=== PATIENT | female | born 1950 | race Two or more races ===

== ENCOUNTER 2017-09-10 06:57 | Inpatient (IN) | payer MEDICARE, OTHER ==
[~2017-09-10] VITALS: Ht 160 cm; Wt 86.6 kg
--- NOTE | 2017-09-10 06:57 | NUR ---
RECEIVED PATIENT TO ED BED 12, A/OX4, PT WAS BBRA FROM HOME COMPLAINING OF CP X3 HOURS RADIATING TO EPIGASTRIC AREA, 2 NTG SPRAYS AND ASA 162MG PO. SKIN IS WARM AND NON DIAPHORETIC. GOWNED AND PLACED ON CONT CARDIAC AND POX MONITORING. ALL NEEDS ARE ATTENEDED, KEPT COMFORTABLE. PENDING ER MD EVALUATION
[2017-09-10 07:32] LABS: BASOPHILS % (AUTO) 0.3 % (0.0-2.0); EOSINOPHILS % (AUTO) 1.7 % (0.0-6.0); HEMATOCRIT 42 % (33-45); HEMOGLOBIN 14.2 g/dL (11.5-14.8); LYMPHOCYTES # (AUTO) 2.5 /CMM (0.8-4.8); LYMPHOCYTES % (AUTO) 22.9 % (20.0-44.0); MEAN CORPUSCULAR HGB CONC 34 g/dl (31.0-36.0); MEAN CORPUSCULAR VOLUME 89 fL (82-100); MONOCYTES # (AUTO) 0.6 /CMM (0.1-1.30); MONOCYTES % (AUTO) 5.6 % (2.0-12.0); NEUTROPHILS # (AUTO) 7.5 /CMM (1.8-8.9); NEUTROPHILS % (AUTO) 69.5 % (43.0-81.0); PLATELET COUNT (AUTO) 328 /CMM (150-450); RDW COEFFICIENT OF VARIATION 12.7 (11.5-15.0); RED BLOOD CELL COUNT(AUTO) 4.75 MIL/uL (4.0-5.2); WHITE BLOOD COUNT (AUTO) 10.8 K/uL (4.3-11.0)
[2017-09-10 07:48] LABS: ALANINE AMINOTRANSFERASE 23 U/L (12-78); ALBUMIN 3.5 g/dL (3.4-5.0); ALKALINE PHOSPHATASE 109 U/L (46-116); ASPARTATE AMINOTRANSFERASE 13 U/L (15-37); BILIRUBIN,DIRECT 0.1 mg/dL (0.0-0.2); BILIRUBIN,TOTAL 0.3 mg/dL (0.2-1.0); CALCIUM, SERUM 9.7 mg/dL (8.5-10.1); CARBON DIOXIDE 25 mmol/L (21-32); CHLORIDE 100 mmol/L (98-107); GLUCOSE 199 mg/dL (74-106); LIPASE 210 U/L (73-393); POTASSIUM 4.1 mmol/L (3.5-5.1); SODIUM SERUM 137 mmol/L (136-145); UREA NITROGEN, BLOOD 13 mg/dL (7-18)
[2017-09-10 07:50] LABS: TROPONIN I < 0.017 ng/mL (0.00-0.056)
[2017-09-10 07:53] LABS: CREATININE 0.5 mg/dL (0.6-1.3)
[2017-09-10] MEDS ORDERED: ONDANSETRON HCL/PF 4 MG/2 ML VIAL ONE (08:02)
[2017-09-10] MEDS ORDERED: MORPHINE SULFATE INJ 4 MG/ML DISP.SYRIN ONE ×2 (08:02→10:01)
[2017-09-10] MEDS ORDERED: ONDANSETRON HCL/PF 4 MG/2 ML VIAL IVP ONE (08:30)
[2017-09-10] MEDS ORDERED: MORPHINE SULFATE INJ 2 MG/ML DISP.SYRIN IV ONE ×2 (08:30→11:30)
--- NOTE | 2017-09-10 09:08 | NUR ---
PANEL ENTRY SPECIALIST PAGED
--- NOTE | 2017-09-10 09:24 | NUR ---
XRAY AT BEDSIDE
[2017-09-10] MEDS ORDERED: DOCU100C36 PO (09:56)
[2017-09-10] MEDS ORDERED: METF-442 PO (09:56)
[2017-09-10] MEDS ORDERED: GLIM4TAB2 PO (09:56)
[2017-09-10] MEDS ORDERED: ASPI-1152 PO (09:56)
[2017-09-10] MEDS ORDERED: BENA10TA9 PO (09:56)
[2017-09-10] MEDS ORDERED: FAMO20TA8 PO (09:56)
[2017-09-10] MEDS ORDERED: NITROGLYCERIN 0.4 MG/TAB BOTTLE SL PRN (10:00)
[2017-09-10] MEDS ORDERED: MAG HYDROX/AL HYDROX/SIMETH 30 ML UDC PO PRN (10:00)
[2017-09-10] MEDS ORDERED: ZOLPIDEM TARTRATE 5 MG TABLET PO PRN (10:00)
[2017-09-10] MEDS ORDERED: Z GUARD REMEDY 2 OZ OINT TP PRN (10:00)
[2017-09-10] MEDS ORDERED: ONDANSETRON HCL/PF 4 MG/2 ML VIAL IVP PRN (10:00)
--- NOTE | 2017-09-10 10:07 | NUR ---
VERBAL ORDER PER DR GRANADOS MORPHINE 2MG FOR CHEST PAIN. GIVEN ORDERED BY ER
--- NOTE | 2017-09-10 10:27 | NUR ---
REPORT GIVEN TO VIOLET GREEN FOR JAMI
--- NOTE | 2017-09-10 10:58 | NUR ---
TRANSFERRED TO FLOOR VIA ACLS PROTOCOL
[2017-09-10 11:00] VITALS: BP 151/76
--- NOTE | 2017-09-10 11:00 | NUR ---
RESTAURANT AREA DIRECTOR OPENING NOTES PT RECEIVED AWAKE A & O X 4, NO C/O PAIN, NO SOB. NO FEVER @ THIS TIME. IV ACCESS TO LAC PATENT AND INTACT NO REDNESS OR INFILTRATION NOTED,BRP WITH ASSIST. ABLE TO MAKE NEEDS KNOWN. SAFETY MEASURES IN PLACE.AYDEE QUINTEROS AWARE PT IS ON UNIT WILL CARRY OUT ADMITTING ORDERS BED IN LOW LOCKED POSITION. CALL LIGHT WITHIN REACH WILL CONTINUE TO MONITOR, PER PT MISSING PHONE NO PHONE IN BELONGINGS LIST FROM ER PER ER WILL SEARCH
[2017-09-10] MEDS ORDERED: DEXTROSE 50%-WATER 50 ML DISP.SYRIN IV PRN (12:00)
[2017-09-10] MEDS: PANTOPRAZOLE 40 MG TABLET.DR PO SCH (12:06)
[2017-09-10] MEDS: BLOOD SUGAR DIAGNOSTIC 1 EACH STRIP IN SCH ×3 (12:06→21:12)
[2017-09-10] MEDS: ENOXAPARIN SODIUM 40 MG/0.4 ML DISP.SYRIN SQ SCH (12:18)
[2017-09-10] MEDS: INSULIN REGULAR, HUMAN 100 UNIT/ML 3 ML VIAL SQ PRN ×3 (12:50→21:23)
[2017-09-10] MEDS: MORPHINE SULFATE INJ 4 MG/ML DISP.SYRIN IV PRN ×3 (12:51→22:27)
[2017-09-10] MEDS: LORAZEPAM INJ 2 MG/ML VIAL IV PRN ×2 (13:37→21:13)
[2017-09-10 14:03] LABS: THYROID STIMULATING HORMONE 1.254 uIU/mL (0.358-3.74)
[2017-09-10 16:00] VITALS: BP 145/73
[2017-09-10] MEDS: METFORMIN 500 MG TABLET PO SCH (17:00)
--- NOTE | 2017-09-10 19:15 | NUR ---
HOSPITAL STAFF PHARMACIST OPENING NOTE RECEIVED PATIENT SITTING ON THE BED, ALERT ORIENTED X3, ON ROOM AIR TOLERATING WELL, IN NO APPARENT DISTRESS OR DISCOMFORT AT THIS TIME. RESPIRATIONS EVEN AND UNLABORED, NO COMPLAINS OF PAIN OR SOB. ABLE TO MAKE NEEDS KNOWN. IVC ON THE RIGHT AC 18G, PATENT AND INTACT, NO REDNESS OR INFILTRATION NOTED. ON TELE MONITORING WITH SINUS RHYTHM AND HEART RATE OF 81. PATIENT WITH BRP WITH ASSISTANCE. FAMILY AT BEDSIDE. SAFETY MEASURES IN PLACE, BED IN LOW LOCKED POSITION, CALL LIGHT WITHIN EASY REACH, WILL CONTINUE TO MONITOR.
--- NOTE | 2017-09-10 19:43 | NUR ---
RN JARVISS PT AWAKE A & O X 4, NO C/O PAIN, NO SOB. NO FEVER @ THIS TIME. IV ACCESS TO LAC PATENT AND INTACT NO REDNESS OR INFILTRATION NOTED,BRP WITH ASSIST. ABLE TO MAKE NEEDS KNOWN. SAFETY MEASURES IN PLACE.AYDEE QUINTEROS AWARE PT IS ON UNIT WILL CARRY OUT ADMITTING ORDERS BED IN LOW LOCKED POSITION. CALL LIGHT WITHIN REACH, ENDORSED TO NEXT SHIFT FOR CONTINUITY OF CARE JUST ARRIVED FROM HIDA SCAN BS CHECKED PT EXPLAINED ABOUT HIDA SCAN PROCEDURE
[2017-09-10 20:00] VITALS: BP_SYST 138; BP_DIAS 65; BP_DIAS 66
[2017-09-10] MEDS: ATORVASTATIN 10 MG TABLET PO SCH (21:13)
--- NOTE | 2017-09-10 21:30 | NUR ---
PRN ATIVAN 0.5MG WAS ADMINISTERED BEFORE PATIENT WAS TAKEN TO HIDA SCAN DUE TO PATIENT STATING SHE GET CLAUSTROPHOBIC AND ANXIOUS DURING SUCH EXAMS. WILL REASSESS UPON RETURN .
[2017-09-11 04:00] VITALS: BP 131/62
[2017-09-11] MEDS: MAGNESIUM HYDROXIDE 30 ML UDC PO PRN (05:27)
[2017-09-11] MEDS: ACETAMINOPHEN 325 MG TABLET PO PRN (06:00)
--- NOTE | 2017-09-11 06:29 | NUR ---
INDUSTRIAL SAFETY AND HEALTH SPECIALIST CLOSING NOTE PATIENT IN THE BED, SLEEPING, EASILY AROUSED WITH VERBAL STIMULI, ORIENTED X3, ON 2L O2 VIA NC, TOLERATING WELL, IN NO APPARENT DISTRESS OR DISCOMFORT AT THIS TIME. RESPIRATIONS EVEN AND UNLABORED, NO COMPLAINS OF PAIN OR SOB. ABLE TO MAKE NEEDS KNOWN. IVC ON THE RIGHT AC 18G, PATENT AND INTACT, NO REDNESS OR INFILTRATION NOTED. ON TELE MONITORING WITH SINUS RHYTHM AND HEART RATE OF 93. PATIENT WITH BRP WITH ASSISTANCE. FAMILY AT BEDSIDE. SAFETY MEASURES IN PLACE, BED IN LOW LOCKED POSITION, CALL LIGHT WITHIN EASY REACH,, WILL ENDORSE TO AM NURSE FOR JAMI.
[2017-09-11] MEDS: BLOOD SUGAR DIAGNOSTIC 1 EACH STRIP IN SCH ×4 (06:51→21:27)
[2017-09-11 06:52] LABS: EOSINOPHILS % (AUTO) 0.3 % (0.0-6.0); HEMATOCRIT 42 % (33-45); HEMOGLOBIN 14.6 g/dL (11.5-14.8); LYMPHOCYTES % (AUTO) 8.2 % (20.0-44.0); MEAN CORPUSCULAR HGB CONC 35 g/dl (31.0-36.0); MEAN CORPUSCULAR VOLUME 89 fL (82-100); MONOCYTES # (AUTO) 1.4 /CMM (0.1-1.30); MONOCYTES % (AUTO) 5.6 % (2.0-12.0); NEUTROPHILS # (AUTO) 20.7 /CMM (1.8-8.9); NEUTROPHILS % (AUTO) 85.9 % (43.0-81.0); PLATELET COUNT (AUTO) 349 /CMM (150-450); RDW COEFFICIENT OF VARIATION 12.6 (11.5-15.0); WHITE BLOOD COUNT (AUTO) 24.1 K/uL (4.3-11.0)
[2017-09-11] MEDS: INSULIN REGULAR, HUMAN 100 UNIT/ML 3 ML VIAL SQ PRN ×4 (06:53→21:39)
[2017-09-11 07:13] LABS: ALBUMIN 3.4 g/dL (3.4-5.0); BILIRUBIN,TOTAL 0.6 mg/dL (0.2-1.0); CALCIUM, SERUM 9.2 mg/dL (8.5-10.1); CREATININE 0.5 mg/dL (0.6-1.3); MAGNESIUM 2.2 mg/dL (1.8-2.4); PHOSPHORUS 3.4 mg/dL (2.5-4.9); POTASSIUM 4.1 mmol/L (3.5-5.1)
[2017-09-11 08:00] VITALS: BP 142/83
--- NOTE | 2017-09-11 08:00 | NUR ---
ms rn received on bed,awake,alert,oriented x3,not in any form of distress, respirations even and unlabored,no sob noted, lungs are diminish,abdomen soft,positive bowel sounds,denies pain at this time, will monitor patient's condition.
[2017-09-11] MEDS: METFORMIN 500 MG TABLET PO SCH ×2 (08:40→17:25)
[2017-09-11] MEDS: ASPIRIN EC 325 MG TABLET.DR PO SCH (08:40)
[2017-09-11] MEDS: PANTOPRAZOLE 40 MG TABLET.DR PO SCH (08:41)
[2017-09-11] MEDS: BENAZEPRIL HCL 10 MG TABLET PO SCH (08:41)
[2017-09-11] MEDS: HYDROCODONE/APAP 5/325MG 1 EACH TABLET PO PRN ×2 (08:42→17:25)
[2017-09-11] MEDS: ENOXAPARIN SODIUM 40 MG/0.4 ML DISP.SYRIN SQ SCH (08:42)
--- NOTE | 2017-09-11 08:45 | NUR ---
ms chauhan breakfast served,due meds given,tolerated well.
[2017-09-11 09:05] LABS: BAND % (MANUAL) 1 % (0.0-5.0); LYMPHOCYTES % (MANUAL) 10 % (16-48); MONOCYTES % (MANUAL) 8 % (0-11.0); NEUTROPHILS % (MANUAL) 81 (42-76)
--- NOTE | 2017-09-11 15:00 | NUR ---
ms rn was seen by audi mckeon, hida scan positive,refferred to dr. vergara.
[2017-09-11 15:57] VITALS: BP 142/67
--- NOTE | 2017-09-11 16:00 | NUR ---
ms rn was seen by robyn reyes, patient will have surgery in am, npo post midnight, patient aware.
[2017-09-11] MEDS ORDERED: PIPERACILLIN /TAZOBACTAM 3.375 G in IV D5W 100 ML IV SCH (17:00)
[2017-09-11] MEDS: PIPERACILLIN /TAZOBACTAM 3.375 G in IV D5W 50 ML IV SCH ×2 (18:37→23:56)
--- NOTE | 2017-09-11 18:43 | NUR ---
ms chauhan vbs - 250 4 units of regular insulin given.
[2017-09-11 19:38] LABS: INR 0.95 (0.87-1.13)
--- NOTE | 2017-09-11 19:57 | NUR ---
MS/RN OPENING NOTES PATIENT IN BED, ALERT, ORIENTED, ABLE TO VERBALIZE NEEDS, GOOD EYE CONTACT. RESPIRATIONS EVEN AND UNLABORED, CALL LIGHTS WITHIN REACH, RECEIVED ENDORSEMENT FROM AM RN FOR JAMI WITH PLAN /MD ORDER FOR SCHEDULED PROCEDURE, PATIENT AWARE, NPO AFTER MIDNIGHT, WILL FOLLOW UP CONSENT AND CHECKLIST, CBED IN LOCK POSITION,WILL MONITOR.
[2017-09-11 20:00] VITALS: BP_SYST 110; BP_SYST 124; BP_DIAS 65
[2017-09-11] MEDS: ATORVASTATIN 10 MG TABLET PO SCH (21:24)
[2017-09-12] MEDS: PIPERACILLIN /TAZOBACTAM 3.375 G in IV D5W 50 ML IV SCH ×4 (05:09→23:59)
--- NOTE | 2017-09-12 06:28 | NUR ---
304-2 MS/RN NOTES PATIENT IN BED, ABLE TO SLEEP DURING THE NIGHT, ON OXYGEN VIA NC AT 2L, SKIN WARM TO TOUCH, WILL ENDORSE TO AM RN FOR JAMI. CALL LIGHTS WITHIN REACH, BED IN LOCK POSITION.
[2017-09-12 06:42] LABS: APPEARANCE,URINE CLOUDY (CLEAR); BILIRUBIN,URINE NEGATIVE (NEGATIVE); BLOOD, URINE TRACE-INTA Ery/uL (NEGATIVE); COLOR,URINE YELLOW (YELLOW); KETONES,URINE NEGATIVE (NEGATIVE); LEUKOCYTE ESTERASE ,URINE NEGATIVE (NEGATIVE); NITRITE, URINE NEGATIVE (NEGATIVE); PROTEIN,URINE NEGATIVE (NEGATIVE); UGLUCOSE 3+ mg/dL (NEGATIVE); UROBILINOGEN,URINE 0.2 EU/dL (0.2)
[2017-09-12 06:52] LABS: BACTERIA,URINE Few /HPF (None Seen); MUCUS,URINE Few /LPF (None Seen); URINE AMORPHOUS URATE Many /HPF (None Seen); WBC,URINE 0-2 /HPF (0-3)
--- NOTE | 2017-09-12 07:15 | NUR ---
MS/RN OPENING NOTE PATIENT IS RECEIVED IN BED AWAKE. ALERT AND ORIENTED X4. DENIES SOB. RESPIRATION REGULAR AND UNLABORED. DENIES PAIN. PATIENT NPO SINCE MIDNIGHT. RAC G 18 PATENT AND SALINE LOCKED. BED LOW AND LOCKED. SIDE RAILS UP X2. CALL LIGHT WITHIN REACH. WILL CONTINUE TO MONITOR.
[2017-09-12 08:00] VITALS: BP 122/68
[2017-09-12] MEDS: MAGNESIUM HYDROXIDE 30 ML UDC PO PRN (08:12)
[2017-09-12] MEDS: BENAZEPRIL HCL 10 MG TABLET PO SCH (08:13)
[2017-09-12] MEDS: ASPIRIN EC 325 MG TABLET.DR PO SCH (08:13)
[2017-09-12] MEDS: PANTOPRAZOLE 40 MG TABLET.DR PO SCH (08:14)
[2017-09-12] MEDS: BLOOD SUGAR DIAGNOSTIC 1 EACH STRIP IN SCH ×4 (08:14→22:16)
--- NOTE | 2017-09-12 08:43 | NUR ---
MS/RN NOTE BLOOD SUGAR 193. NO INSULIN GIVEN DUE TO PATIENT REMAINING NPO.
[2017-09-12] MEDS: METFORMIN 500 MG TABLET PO SCH ×2 (09:00→17:00)
[2017-09-12] MEDS ORDERED: MAGNESIUM HYDROXIDE 30 ML UDC PO PRN (09:00)
[2017-09-12] MEDS ORDERED: NA PHOS,M-B/NA PHOS,DI-BA 1 EA ENEMA RC PRN (09:00)
--- NOTE | 2017-09-12 10:00 | NUR ---
MS/RN NOTE 0900 GLUCOPHAGE HELD DUE TO PATIENT REMAINING NPO FOR DIAGNOSIS.
[2017-09-12] MEDS ORDERED: FENTANYL PF 100MCG/2ML AMPUL ONE ×2 (15:57→15:58)
[2017-09-12] MEDS ORDERED: SUCCINYLCHOLINE CHLORIDE 20 MG/ML VIAL ONE (15:58)
[2017-09-12] MEDS ORDERED: ROCURONIUM BROMIDE 50 MG/5 ML ONE ×2 (15:59→17:32)
--- NOTE | 2017-09-12 16:00 | NUR ---
MS/RN NOTE PATIENT ALERT AND ORIENTED X4. RESPIRATION REGULAR AND UNLABORED. DENIES SOB. DENIES PAIN. PATIENT IN NO APPARENT DISTRESS. PATIENT IS PICKED UP ON A GURNEY AND TAKEN TO OR FOR PROCEDURE.
[2017-09-12] MEDS ORDERED: LIDOCAINE 1%-EPI 1:100,000 20 ML VIAL ONE (16:30)
[2017-09-12] MEDS ORDERED: BUPIVACAINE 0.25% 75 MG/30 ML VIAL ONE (16:30)
[2017-09-12] MEDS ORDERED: IOHEXOL 240MG/ML 50 ML IV ONE (17:22)
--- NOTE | 2017-09-12 18:38 | NUR ---
MS/RN NOTE 1700 GLUCOPHAGE NOT GIVEN AND 1730 BLOOD SUGAR NOT CHECKED DUE TO PATIENT STILL IN OR.
--- NOTE | 2017-09-12 18:41 | NUR ---
MS/RN NOTE PATIENT IS STILL IN OR. ENDORSEMENTS WILL BE GIVEN TO THE UPCOMING SHIFT.
--- NOTE | 2017-09-12 18:45 | NUR ---
MS/RN NOTE 1800 ZOSYN NOT ADMINISTERED DUE TO PATIENT STILL IN OR.
[2017-09-12] MEDS ORDERED: HYDROMORPHONE INJ 2 MG/ML DISP.SYRIN ONE (18:55)
--- NOTE | 2017-09-12 19:25 | NUR ---
TELE/THERAPIST OCCUPATIONAL; PT CAME BACK FOR OR VIA GURLILIBETH ACCOMPANIED BY SHIP FITTER, BANDAR. PT IS AWAKE AND VERBALLY RESPONSIVE. PT WITH 4 INCISIONAL DRESSINGS CLEAN AND INTACT. HAS CHAVEZ RT SIDE OF THE ABDOMEN WITH RED DRAINAGE COLOR. HL ON LAC INTACT. PLACED ON TELEMETRY ORDERED. DVT PUMP APPLIED TO BOTH LOWER LEGS. RT INFORMED FOR THE INCENTIVE SPIROMETRY TO THE PT. HOB ELEVATED ORDERED. ICE PACK APPLIED TO THE ABDOMEN ORDERED. VITAL SIGNS CHECKED BY THE [place] CONSULTANT . BED ON LOWER POSITION AND LOCKED FOR SAFETY. SIDE RAILS X 3 ARE UP FOR SAFETY.
--- NOTE | 2017-09-12 19:30 | NUR ---
TELE/DATA WAREHOUSING MANAGER; VITAL SIGNS Q 15 MINS; 123/47 P 62, R 18 T 97.7 O2 SAT ON O2 2L NC 97 % 123 / 60 P 96 112 / 58 , P 95 117 / 99 , P 100
[2017-09-12 20:00] VITALS: BP 116/57
--- NOTE | 2017-09-12 20:06 | NUR ---
RECEIVED ORDER FOR INCENTIVE SPIROMETER. PT CAME FROM SURGERY. EXPLAINED AND EDUCATED PT AND FAMILY MEMBERS IN THE ROOM HOW TO USE THE INCENTIVE SPIROMETER.
--- NOTE | 2017-09-12 20:30 | NUR ---
TELE/LOTUS NOTES DEVELOPER; VITAL SIGNS Q 30 MINS; 104/56 P 94 R 18 T 97.6 O2 SA ON 2L NC 97 %; 92/48 , P65, R 18 T 97.4 O2 SAT 92 % on o2 2lnc; 106/ 57 P 73; 117 / 64 P 81 ; 112 / 63 P 79.
--- NOTE | 2017-09-12 21:05 | NUR ---
TELE/RUSSIAN LANGUAGE INSTRUCTOR; PLACED A CALL TO DR. PASTORA BASURTO FOR POST ORDER FOR THE PT BE ON HOME HEALTH CAREGIVER, DIET , IF PRE OP. ORDERS TO RESUME AND IV FLUIDS. DR. PASTORA BASURTO WITH ORDERS TO PLACE PT ON HOME HEALTH CAREGIVER , START CLEAR LIQUID TONIGHT, HE SAID I RESUMED ALREADY THE PRE OP ORDERS AND FOR THIV FLUIDS TO CALL THE PRIMARY MD.
--- NOTE | 2017-09-12 22:00 | NUR ---
TELE/BILINGUAL ELEMENTARY SCHOOL TEACHER; BS 259 COVERED WITH REGULAR INSULIN 6 UNITS SQ.
[2017-09-12] MEDS: ATORVASTATIN 10 MG TABLET PO SCH (22:04)
[2017-09-12] MEDS: INSULIN REGULAR, HUMAN 100 UNIT/ML 3 ML VIAL SQ PRN (22:29)
[2017-09-12] MEDS: INSULIN GLARGINE, 100 UNIT/ML CARTRIDGE SQ SCH (22:33)
--- NOTE | 2017-09-12 22:40 | NUR ---
TELE/MOTION PICTURE EQUIPMENT MACHINIST; I PLACED A CALL TO DR. BANDAR DIXON AND I SPOKE TO HIM THIS POST OP PT IF SHE NEEDS IV FLUID AND HE SAID IF PT ON DIET ORDER AND I SAID ON CLEAR LIQUID AND DR. BANDAR DIXON SAID NO IV FLUIDS ORDER.
[2017-09-13] VITALS: BP 107/69
[2017-09-13 04:00] VITALS: BP 95/66
[2017-09-13] MEDS: PIPERACILLIN /TAZOBACTAM 3.375 G in IV D5W 50 ML IV SCH ×3 (05:05→17:23)
--- NOTE | 2017-09-13 06:00 | NUR ---
TELE/BEACH PATROL LIEUTENANT; BS 223 COVERED WITH REGULAR INSULIN 4 UNITS SQ.
[2017-09-13] MEDS: BLOOD SUGAR DIAGNOSTIC 1 EACH STRIP IN SCH ×4 (06:06→21:50)
[2017-09-13] MEDS: INSULIN REGULAR, HUMAN 100 UNIT/ML 3 ML VIAL SQ PRN ×3 (06:32→17:18)
[2017-09-13 06:39] LABS: HEMATOCRIT 38 % (33-45); LYMPHOCYTES # (AUTO) 1.4 /CMM (0.8-4.8); MEAN CORPUSCULAR HGB CONC 34 g/dl (31.0-36.0); MEAN CORPUSCULAR VOLUME 90 fL (82-100); MONOCYTES # (AUTO) 0.9 /CMM (0.1-1.30); MONOCYTES % (AUTO) 4.9 % (2.0-12.0); NEUTROPHILS # (AUTO) 15.4 /CMM (1.8-8.9); NEUTROPHILS % (AUTO) 87.1 % (43.0-81.0); PLATELET COUNT (AUTO) 326 /CMM (150-450); RDW COEFFICIENT OF VARIATION 12.5 (11.5-15.0); RED BLOOD CELL COUNT(AUTO) 4.28 MIL/uL (4.0-5.2); WHITE BLOOD COUNT (AUTO) 17.7 K/uL (4.3-11.0)
--- NOTE | 2017-09-13 06:43 | NUR ---
TELE/INFORMATION CLERK [employer]; PT ON SR 87. SLEPT ON AND OFF. VOIDING. DRESSING INTACT. CHAVEZ WITH 75 ML RED COLOR DRAINAGE. ICE PACK TO ABDOMEN APPLIED. CHAVEZ MILK Q8 HOURS ORDERED. WILL CONTINUE TO MONITOR. CALL LIGHT WITHIN REACH. WILL ENDORSE TO THE DAY SHIFT NURSE.
[2017-09-13 06:48] LABS: ALBUMIN 2.8 g/dL (3.4-5.0); BILIRUBIN,TOTAL 0.5 mg/dL (0.2-1.0); CALCIUM, SERUM 8.9 mg/dL (8.5-10.1); CREATININE 0.5 mg/dL (0.6-1.3); POTASSIUM 4.2 mmol/L (3.5-5.1); TOTAL PROTEIN, SERUM 7.1 g/dL (6.4-8.2)
--- NOTE | 2017-09-13 07:20 | NUR ---
TELE/RN OPENING NOTE PATIENT IS RECEIVED IN BED. AWAKE, ALERT AND ORIENTED X4. DENIES SOB. RESPIRATION REGULAR AND UNLABORED. DENIES PAIN. PATIENT ON TELE MONITOR AND REGISTERING SR. ABDOMINAL INCISION DRESSINGS INTACT AND NO BLEEDING, NO DISCHARGE NOTED. CHAVEZ DRAIN IN PLACE. BED LOW AND LOCKED. SIDE RAILS UP X2. CALL LIGHT WITHIN REACH. WILL CONTINUE TO MONITOR.
[2017-09-13 08:00] VITALS: BP 111/70
[2017-09-13] MEDS: PANTOPRAZOLE 40 MG TABLET.DR PO SCH (08:18)
[2017-09-13] MEDS: ASPIRIN EC 325 MG TABLET.DR PO SCH (08:18)
[2017-09-13] MEDS: BENAZEPRIL HCL 10 MG TABLET PO SCH (08:19)
[2017-09-13] MEDS: METFORMIN 500 MG TABLET PO SCH ×2 (08:19→16:25)
[2017-09-13] MEDS: HYDROCODONE/APAP 5/325MG 1 EACH TABLET PO PRN (13:15)
[2017-09-13 15:58] VITALS: BP 107/61
[2017-09-13 16:00] VITALS: BP_SYST 107; BP_SYST 111; BP_DIAS 61; BP_DIAS 70
--- NOTE | 2017-09-13 18:19 | NUR ---
MS/RN CLOSING NOTE PATIENT ALERT AND ORIENTED X4. RESPIRATION REGULAR AND UNLABORED. DENIES SOB. ON O2 VIA NC AND O2 SATURATION AT 96%. ABDOMINAL INCISIONS WITH DRESSING AND NO BLEEDING/ NO DISCHARGE NOTED. RIGHT HAND G 24 PATENT AND SALINE LOCKED. PATIENT AMBULATES WITH STAND BY ASSIST. BED LOW AND LOCKED. SIDE RAILS UP X2. CALL LIGHT WITHIN REACH. WILL ENDORSE TO WATCH AND CLOCK REPAIR CLERK.
[2017-09-13] MEDS: ACETAMINOPHEN 325 MG TABLET PO PRN (19:54)
--- NOTE | 2017-09-13 19:56 | NUR ---
MS/RN OPENING NOTES PATIENT IN BED, RESTING COMFORTABLY IN BED, ALERT, ORIENTED, ON OXYGEN VIA NC AT 2L, WEAK BUT ABLE TO VERBALIZE NEEDS, PAIN OF 3/10 REPORTED, TYLENO 650MG PO GIVEN, FAMILY AT BEDSIDE. CALL LIGHTS WITHIN REACH, BED IN LOCK POSITION. DRESSING ON ABDOMEN DRY AND INTACT. CHAVEZ DRAIN INTACT WITH SCANTY DRAIN. KEEP SKIN INTACT AND DRY.
[2017-09-13 20:00] VITALS: BP 111/60
--- NOTE | 2017-09-13 20:40 | NUR ---
MS RN NOTE RECEIVED PATIENT FROM PETER GUAMAN FOR JAMI. WILL CONTINUE TO MONITOR PATIENT.
[2017-09-13] MEDS: ATORVASTATIN 10 MG TABLET PO SCH (21:48)
[2017-09-13] MEDS: INSULIN GLARGINE, 100 UNIT/ML CARTRIDGE SQ SCH (21:52)
[2017-09-13] MEDS: LORAZEPAM INJ 2 MG/ML VIAL IV PRN (22:22)
--- NOTE | 2017-09-13 22:25 | NUR ---
MS RN NOTE PATIENT STATED THAT SHE FEELS ANXIOUS, WANTS TO TAKE MEDICATION. ATIVAN 0.5MG IV GIVEN.
[2017-09-14] MEDS: PIPERACILLIN /TAZOBACTAM 3.375 G in IV D5W 50 ML IV SCH ×6 (05:34→23:00)
[2017-09-14] MEDS: BLOOD SUGAR DIAGNOSTIC 1 EACH STRIP IN SCH ×4 (05:37→21:36)
[2017-09-14] MEDS: INSULIN REGULAR, HUMAN 100 UNIT/ML 3 ML VIAL SQ PRN ×4 (05:39→21:45)
--- NOTE | 2017-09-14 06:04 | NUR ---
ms rn note patient transferred to ms 2 208 without incidence. bedside report given to yasemin chauhan.
--- NOTE | 2017-09-14 07:03 | NUR ---
MS/RN NOTES RECEIVED PATIETN, ALERT, ORIENTED, RESTING COMFORTABLY IN BED, ATTEND TO NEEDS, SKIN WARM TO TOUCH, WILL ENDORSE TO AM RN FOR JAMI.
--- NOTE | 2017-09-14 07:30 | NUR ---
RN MS NOTES PT IN BED, AWAKE, ALERT AND ORIENTED, WITH COMPLAINT OF MILD PAIN 3/10 IN ABDOMEN AREA, NOT IN DISTRESS, CALL LIGHT WITHIN REACH, KEPT COMFORTABLE, NEEDS ATTENDED.
[2017-09-14 08:00] VITALS: BP 109/58
[2017-09-14] MEDS: BENAZEPRIL HCL 10 MG TABLET PO SCH (09:00)
[2017-09-14] MEDS: METFORMIN 500 MG TABLET PO SCH ×2 (09:08→18:16)
[2017-09-14] MEDS: PANTOPRAZOLE 40 MG TABLET.DR PO SCH (09:09)
[2017-09-14] MEDS: DOCUSATE SODIUM 100 MG CAPSULE PO PRN (09:13)
--- NOTE | 2017-09-14 11:55 | NUR ---
RN MS NOTES PT IN BED, AWAKE, ALERT AND ORIENTED, DENIES PAIN, NOT IN DISTRESS, CALL LIGHT WITHIN EACH, ASSISTED TO BATHROOM NEEDED, ABLE TO WALK WITH ASSISTANCE, NEEDS ATTENDED.
[2017-09-14] MEDS: ASPIRIN EC 325 MG TABLET.DR PO SCH (12:12)
[2017-09-14 16:00] VITALS: BP 144/76
[2017-09-14 17:50] LABS: BASOPHILS % (AUTO) 0.3 % (0.0-2.0); EOSINOPHILS % (AUTO) 1.4 % (0.0-6.0); HEMATOCRIT 39 % (33-45); HEMOGLOBIN 13.2 g/dL (11.5-14.8); LYMPHOCYTES # (AUTO) 2.6 /CMM (0.8-4.8); MEAN CORPUSCULAR HGB CONC 34 g/dl (31.0-36.0); MEAN CORPUSCULAR VOLUME 88 fL (82-100); MONOCYTES # (AUTO) 0.8 /CMM (0.1-1.30); MONOCYTES % (AUTO) 6.5 % (2.0-12.0); NEUTROPHILS # (AUTO) 8.7 /CMM (1.8-8.9); NEUTROPHILS % (AUTO) 70.8 % (43.0-81.0); PLATELET COUNT (AUTO) 362 /CMM (150-450); RDW COEFFICIENT OF VARIATION 12.9 (11.5-15.0); RED BLOOD CELL COUNT(AUTO) 4.45 MIL/uL (4.0-5.2); WHITE BLOOD COUNT (AUTO) 12.2 K/uL (4.3-11.0)
[2017-09-14 18:09] LABS: CALCIUM, SERUM 9.3 mg/dL (8.5-10.1); CREATININE 0.6 mg/dL (0.6-1.3); POTASSIUM 3.6 mmol/L (3.5-5.1)
--- NOTE | 2017-09-14 19:00 | NUR ---
RN MS NOTES PT IN BED, AWAKE, ALERT AND ORIENTED, NO COMPLAINT OF PAIN, BREATHING PATTERN NORMAL AND NOT LABORED, ABLE TO AMBULATE WITH ASSISTANCE, CHAVEZ DRAIN IN PLACE, WITH MINIMAL DRAIN NOTED, PM MEDS GIVEN, TOLERATING CURRENT DIET WELL, BLOOD SUGAR CHECKED, NO S/S OF HYPO/HYPERGLYCEMIA NOTED, CALL LIGHT WITHIN REACH, ALL NEEDS ATTENDED.
--- NOTE | 2017-09-14 19:23 | NUR ---
MS RN NOTES RECEIVE PT IN BED A/O X 4, NO S/S OF DISTRESS, SAFETY MEASURES IN PLACE, CALL LIGHT WITHIN REACH, WILL CONTINUE TO MONITOR
[2017-09-14 20:00] VITALS: BP 100/55
[2017-09-14] MEDS: ATORVASTATIN 10 MG TABLET PO SCH (21:36)
[2017-09-14] MEDS: INSULIN GLARGINE, 100 UNIT/ML CARTRIDGE SQ SCH (21:44)
[2017-09-14] MEDS: MAGNESIUM HYDROXIDE 30 ML UDC PO PRN (21:46)
[2017-09-15] MEDS: PIPERACILLIN /TAZOBACTAM 3.375 G in IV D5W 50 ML IV SCH ×4 (05:01→23:26)
[2017-09-15] MEDS: BLOOD SUGAR DIAGNOSTIC 1 EACH STRIP IN SCH ×4 (05:57→21:59)
[2017-09-15] MEDS: INSULIN REGULAR, HUMAN 100 UNIT/ML 3 ML VIAL SQ PRN ×4 (06:03→21:59)
[2017-09-15 06:36] LABS: CALCIUM, SERUM 8.9 mg/dL (8.5-10.1); CREATININE 0.5 mg/dL (0.6-1.3); POTASSIUM 3.9 mmol/L (3.5-5.1)
[2017-09-15 06:41] LABS: BASOPHILS % (AUTO) 0.3 % (0.0-2.0); HEMATOCRIT 39 % (33-45); HEMOGLOBIN 13.1 g/dL (11.5-14.8); LYMPHOCYTES # (AUTO) 2.4 /CMM (0.8-4.8); MEAN CORPUSCULAR HGB CONC 34 g/dl (31.0-36.0); MEAN CORPUSCULAR VOLUME 88 fL (82-100); MONOCYTES # (AUTO) 0.7 /CMM (0.1-1.30); MONOCYTES % (AUTO) 6.7 % (2.0-12.0); NEUTROPHILS # (AUTO) 6.8 /CMM (1.8-8.9); PLATELET COUNT (AUTO) 376 /CMM (150-450); RDW COEFFICIENT OF VARIATION 12.9 (11.5-15.0); RED BLOOD CELL COUNT(AUTO) 4.39 MIL/uL (4.0-5.2); WHITE BLOOD COUNT (AUTO) 10.1 K/uL (4.3-11.0)
--- NOTE | 2017-09-15 06:41 | NUR ---
MS RN NOTES ASLEEP AND EASILY AWAKEN, HOB ELEVATED, STABLE NO S/S OF ACUTE DISTRESS OR SOB NOTED.TOLERATING ROOM AIR 98% RESPIRATIONS EVEN AND UNLABORED. NEEDS ATTENDED AND ANTICIPATED; AFEBRILE, KEPT CLEAN AND DRY AND COMFORTABLE. NURSING CARE RENDERED, DENIES PAIN. SAFETY MEASURES IN PLACE. BED LOW LOCKED SIDE RAILS UP, CALL LIGHT AND BEDSIDE TABLE WITHIN REACH. ENDORSE TO THE NEXT SHIFT POC.
--- NOTE | 2017-09-15 07:30 | NUR ---
RN MS NOTES PT IN BED, AWAKE, ALERT AND ORIENTED, NO COMPLAINT OF PAIN, RESPIRATIONS NORMAL, CALL LIGHT WITHIN REACH, ASSISTED TO BATHROOM NEEDED, TOLERATING CURRENT DIET WELL, CALL LIGHT WITHIN REACH, NEEDS ATTENDED.
[2017-09-15 08:00] VITALS: BP 109/65
[2017-09-15] MEDS: METFORMIN 500 MG TABLET PO SCH ×2 (08:45→17:00)
[2017-09-15] MEDS: ASPIRIN EC 325 MG TABLET.DR PO SCH (08:45)
[2017-09-15] MEDS: PANTOPRAZOLE 40 MG TABLET.DR PO SCH (08:46)
[2017-09-15] MEDS: DOCUSATE SODIUM 100 MG CAPSULE PO PRN (08:49)
[2017-09-15] MEDS: BENAZEPRIL HCL 10 MG TABLET PO SCH (09:00)
[2017-09-15] MEDS ORDERED: HYDROCODONE BIT/HOMATROPINE 5 ML UDC PO PRN (10:30)
--- NOTE | 2017-09-15 13:08 | NUR ---
RN MS NOTES PT IN BED, AWAKE, ALERT AND ORIENTED, NO COMPLAINT OF PAIN, NOT IN DISTRESS, SEEN BY AYDEE QUINTEROS, ORDERS MADE AND CARRIED OUT, ASSISTED TO BATHROOM NEEDED, CALL LIGHT WITHIN REACH.
[2017-09-15 16:00] VITALS: BP 119/68
--- NOTE | 2017-09-15 18:47 | NUR ---
RN MS NOTES PT IN BED, AWAKE, ALERT AND ORIENTED, NO COMPLAINT OF PAIN, BREATHING PATTERN NORMAL, PM MEDICATIONS GIVEN, FLEET ENEMA GIVEN ORDERED, TOLERATED WELL, TOLERATING CURRENT DIET WELL, ASSISTED TO BATHROOM NEEDED, ALL NEEDS ATTENDED.
--- NOTE | 2017-09-15 19:30 | NUR ---
RECEIVED PATIENT IN BED AWAKE, AO X 3, ABLE TO MAKE NEEDS KNOWN. NO ACUTE DISTRESS NOTED. DENIES ANY PAIN AT THIS TIME. NO SYMPTOMS OF HYPER/HYPOGLYCEMIA. IV SITE PATENT, INTACT. SAFETY REMINDERS GIVEN. ON LOW BED WITH BILATERAL UPPER SIDE RAILS UP. CALL ARCOS WITHIN EASY REACH. WILL CONTINUE TO MONITOR.
[2017-09-15 20:00] VITALS: BP 145/76
[2017-09-15] MEDS: ATORVASTATIN 10 MG TABLET PO SCH (21:46)
[2017-09-15] MEDS: INSULIN GLARGINE, 100 UNIT/ML CARTRIDGE SQ SCH (21:57)
[2017-09-15] MEDS ORDERED: POLYETHYLENE GLYCOL 3350 17 GM POWD.PACK PO SCH (22:00)
--- NOTE | 2017-09-16 06:00 | NUR ---
PATIENT ASLEEP, EASILY AROUSABLE. RESPIRATIONS EVEN. NO SIGNS OF PAIN NOTED. DUE MEDS GIVEN WITH NO ASE NOTE. NEEDS ATTENDED. SAFETY PRECAUTIONS AND COMFORT MEASURES IN PLACE. WILL GIVE REPORT TO DAY SHIFT FOR CONTINUITY OF CARE.
[2017-09-16] MEDS: PIPERACILLIN /TAZOBACTAM 3.375 G in IV D5W 50 ML IV SCH ×3 (06:31→17:42)
[2017-09-16] MEDS: MAGNESIUM HYDROXIDE 30 ML UDC PO PRN (06:57)
[2017-09-16] MEDS: BLOOD SUGAR DIAGNOSTIC 1 EACH STRIP IN SCH ×3 (06:57→17:42)
[2017-09-16] MEDS: PANTOPRAZOLE 40 MG TABLET.DR PO SCH (06:57)
[2017-09-16] MEDS: INSULIN REGULAR, HUMAN 100 UNIT/ML 3 ML VIAL SQ PRN ×3 (07:04→17:51)
[2017-09-16 08:00] VITALS: BP 119/67
--- NOTE | 2017-09-16 08:00 | NUR ---
RN NOTES RECEIVED PATIENT IN THE ROOM A/O X4 MACEDONIAN SPEAKER. PATIENT HAS A CHAVEZ ON RIGHT UPPER QUARTER, AND 3 SMALL INCISIONS WITH THE NICOLE ON, DRESSING ON INTACT. NO DISCHARGE NOTES. PATIENT C/ O PAIN 07/13 AT THIS TIME BUT REFUSED COVERAGE. NO RESPIRATORY DITRESS, NO SOB. PATIENT AMBULATORY ASSIST BATHROOM, AND AMBULATION. IV ACCESS RIGHT UPPER ARM INTACT, SCHEDULED MEDICATION ADMINISTERED V/S STABLE, NEEDS ATTENDED AND ANTICIPATED, CONTINUED MONITORING.
[2017-09-16] MEDS: ASPIRIN EC 325 MG TABLET.DR PO SCH (09:22)
[2017-09-16] MEDS: BENAZEPRIL HCL 10 MG TABLET PO SCH (09:22)
[2017-09-16] MEDS: METFORMIN 500 MG TABLET PO SCH ×2 (09:22→17:47)
--- NOTE | 2017-09-16 12:59 | NUR ---
RN NOTES ADMINISTERED NARCO 5/325 MG PO PRN FOR RIGHT UPPER QUADRANT SURGERY SITE 10/13 PER PATIENT REQUEST, V/S TAKEN BP-119/67, P-81, ENCOURAGED TO INCREASE FLUID INTAKE. BS-225 MG/DL COVERAGE GIVEN, CHAVEZ- 20 ML EMPTIED, ADMINISTERED SCHEDULED MEDICATION. CALL LIGHT WITHIN TO REACH,. NEEDS ATTENDED AND ANTICIPATED. CONTINUED MONITORING.
--- NOTE | 2017-09-16 14:00 | NUR ---
RN NOTES CHAVEZ WAS REMOVED BY OPERATIONS STAFF SPECIALIST SECURITY 10 CC OF DRAINAGE, DRESSING ON, PATIENT TOLERATED WELL, NO C/O PAIN AT THIS TIME. DRESSING CHANGED ON OTHER INCISIONS., PATIENT WILL D/C TO SNF. CONTINUED MONITORING.
[2017-09-16 16:00] VITALS: BP 113/71
--- NOTE | 2017-09-16 18:12 | NUR ---
RN NOTES PATIENT GOING TO D/C SNF. CONTINUED MONITORING
--- NOTE | 2017-09-16 19:00 | NUR ---
RN NOTES REPORT GIVEN SNF RN. RN VERBALIZED UNDERSTANDING. ENDORSED ONCOMING NURSE FOR JAMI.
--- NOTE | 2017-09-16 19:50 | NUR ---
MS RN NOTE: PATIENT RESTING IN BED, NO ACUTE DISTRESS NOTED. BREATHING EVEN AND UNLABORED, NO SOB NOTED. IV TO RAC IN PLACE. BED LOCKED AND IN LOWEST POSITION, CALL LIGHT IN REACH. PATIENT TO BE PICKED UP FOR DISCHARGE TO [facility]. DISCHARGE PAPERWORK COMPLETED DURING DAY SHIFT. NO S/S OF HYPER/HYPOGLYCEMIA NOTED. WILL CONTINUE TO MONITOR.
[2017-09-16 20:00] VITALS: BP 110/58
--- NOTE | 2017-09-16 21:00 | NUR ---
MS RN NOTE: PATIENT BEING DISCHARGE TO [facility]. REPORT GIVEN TO EMT, DISCHARGE PAPERWORK GIVEN. BLOOD SUGAR LEVEL 184 MG/DL, NO COVERAGE GIVEN AT THIS TIME. IV TO RAC REMOVED, COVERED WITH GAUZE, PRESSURE APPLIED AND SECURED WITH TAPE. PATIENT OFF FLOOR WITH DISCHARGE PAPERWORK AND BLANKETS IN STABLE CONDITION. Addendum: 09/16/17 at 3225 by FAHAD MENDEZ RN [address]ESSINGS TO A[address]OM[address] IN PLACE, NO BLEEDING OR DRAINAGE NOTED. NICOLE IN PLACE, NO REDNESS NOTED.
== END 2017-09-16 20:50 | DRG 418 ==
LOC: ER 06:59 → TELE 10:34 → MED 09-11 09:46 → TELE 09-12 20:07 → MED 09-13 08:56 → MEDSG2 09-14 06:09
PROVIDERS: ADMIT Hospitalist; ATTEND Hospitalist
PROC: 0FB04ZX Excision of Liver, Percutaneous Endoscopic Approach, Diagnostic (ICD-10-PCS; 2017-09-12)
PROC: 0FT44ZZ Resection of Gallbladder, Percutaneous Endoscopic Approach (ICD-10-PCS; principal; 2017-09-12 15:30)
DX: K80.00 Calculus of gallbladder with acute cholecystitis without obstruction (principal); E87.1 Hypo-osmolality and hyponatremia; K76.0 Fatty (change of) liver, not elsewhere classified; E11.65 Type 2 diabetes mellitus with hyperglycemia; E88.81 Metabolic syndrome and other insulin resistance; Z79.899 Other long term (current) drug therapy; I10 Essential (primary) hypertension; K21.9 Gastro-esophageal reflux disease without esophagitis; Z79.82 Long term (current) use of aspirin; Z79.84 Long term (current) use of oral hypoglycemic drugs; Z68.34 Body mass index [BMI] 34.0-34.9, adult; E66.9 Obesity, unspecified; Z79.4 Long term (current) use of insulin; E78.5 Hyperlipidemia, unspecified; E55.9 Vitamin D deficiency, unspecified
CPT/HCPCS: 36415; 71045-TC; 74300-TC; 76700-TC; 78226; 80048-TC; 80053-TC; 80061-TC; 80076-TC; 81000-TC; 82306; 82962-TC; 83690-TC; 83735-TC; 83880; 84100-TC; 84439-TC; 84443-TC; 84484-TC; 85025-TC; 85610-TC; 86850-TC; 87081-TC; 88304-TC; 88305-TC; 88307-TC; 88313-TC; 93307-TC; 94799-TC; A4606; A6402; A9537; J0330; J1100; J1170; J1650; J1815; J1885; J2060; J2270; J2405; J2543; J2710; J3010; J3490; J7050; J7060; Q9966; Z7610